=== PATIENT | male | born 1965 | race Caucasian/White ===

== ENCOUNTER 2018-02-02 16:12 | Emergency (ER) | payer OTHER ==
[~2018-02-02] VITALS: Ht 182.9 cm; Wt 79.4 kg
[2018-02-02] MEDS ORDERED: CENTRUM SILVER1 EAC2 PO (16:29)
[2018-02-02] MEDS ORDERED: TOPROL XL25 MG PO (16:29)
[2018-02-02] MEDS ORDERED: ZYRTEC10 M2 PO (16:29)
[2018-02-02] MEDS ORDERED: FISH OIL 1,001000 M2 PO (16:29)
[2018-02-02] MEDS ORDERED: CALCIUM 500 +1 EAC5 PO (16:29)
[2018-02-02 17:34] LABS: ABSOLUTE LYMPHOCYTES 1.2 thou/uL (0.8-5.3); ABSOLUTE MONOCYTES 0.8 thou/uL (0.0-1.2); ABSOLUTE NEUTROPHILS 4.5 thou/uL (1.6-8.1); BASOPHILS 0.6 %; EOSINOPHILS 0.2 %; HEMATOCRIT 39.4 % (42.0-52.0); HEMOGLOBIN 13.7 gm/dL (14.0-18.0); MCH 34.8 pg (26.0-34.0); MCHC 34.7 g/dL (28.0-37.0); MCV 100.2 fL (80.0-100.0); MONOCYTES 11.6 %; MPV 6.7 fl. (7.2-11.1); NUCLEATED RBCS 0 /100WBC; PLATELET COUNT* 237 thou/uL (150-400); POLYS 68.6 %; RBC 3.93 mil/uL (4.50-6.00); RDW-CV 13.6 % (10.5-14.5); WBC 6.5 thou/uL (4.0-11.0)
[2018-02-02 17:51] LABS: ANION GAP 10 mmol/L (7-16); BUN 12 mg/dL (7-18); CALCIUM 9.3 mg/dL (8.5-10.1); CHLORIDE 97 mmol/L (98-107); CO2 29 mmol/L (21-32); GLUCOSE 168 mg/dL (70-99); POTASSIUM 3.8 mmol/L (3.5-5.1); SODIUM 136 mmol/L (136-145)
[2018-02-02 17:58] LABS: ALBUMIN 4.1 g/dL (3.4-5.0); ALKALINE PHOSPHATASE 86 U/L (46-116); SGOT 37 U/L (15-37); SGPT 37 U/L (30-65); TOTAL BILIRUBIN 0.7 mg/dL (<0.1-1.0); TOTAL PROTEIN 7.6 g/dL (6.4-8.2); TROPONIN-I LEVEL <0.06 ng/mL (<0.06)
[2018-02-02] MEDS ORDERED: NORCO 5-325 TA1 EACH PO (18:14)
[2018-02-02] MEDS ORDERED: AUGMENTIN 875-1 EACH PO (18:16)
[2018-02-02 18:30] VITALS: BP 163/95
--- NOTE | 2018-02-04 11:15 | EKG ---
[place] [address] ELECTROCARDIOGRAM REPORT Name: LAURA HE [id number] Admission: 02/02/18 Attend Phys: Discharge: 02/02/18 Date of : 61 Report #: [id number] THIS REPORT FOR: //name// [facility] ED Test Date: 2018-02-02 Test Time: 16:27:41 Pat Name: LAURA HE Department: Room: Gender: Agricultural Equipment Mechanic: Steven SORIANO : 1965 Requested By: Kate Martinez Order Number: [id number] MD: Hemal Murray Measurements Intervals [place] Rate: 78 P: 60 DE: 139 QRS: 22 QRSD: 104 T: 44 QT: 399 QTc: 455 Interpretive Statements Sinus rhythm No previous ECG available for comparison Electronically Signed On 02-04-2018 11:14:52 ADMINISTRATIVE OFFICE MANAGER by Hemal Murray [email or web address] <ELECTRONICALLY SIGNED> By: Hemal Murray MD, [facility] 02/04/18 1114 1627 1627 Hemal Murray MD, FACC /EPI
== END 2018-02-02 18:31 | disposition home or self-care (01) ==
LOC: M.ERS 16:12
PROVIDERS: Physician Assistant
DX: S02.69XA Fracture of mandible of other specified site, initial encounter for closed fracture (principal); S02.31XA Fracture of orbital floor, right side, initial encounter for closed fracture; S02.32XA Fracture of orbital floor, left side, initial encounter for closed fracture; I10 Essential (primary) hypertension; Z85.828 Personal history of other malignant neoplasm of skin; W00.0XXA Fall on same level due to ice and snow, initial encounter; Y93.89 Activity, other specified; Y92.89 Other specified places as the place of occurrence of the external cause; Y99.8 Other external cause status